=== PATIENT | female | born 1930 | race Caucasian/White ===

== ENCOUNTER 2017-10-12 11:31 | Emergency (ER) | payer MEDICARE, BC ==
[~2017-10-12] VITALS: Ht 165.1 cm; Wt 68.4 kg
[2017-10-12 13:57] LABS: BASOPHILS % (AUTO) 0.2 % (0-1); EOSINOPHILS % (AUTO) 0 % (0-6); HEMATOCRIT 42.1 % (35.0-45.0); HEMOGLOBIN 14.4 g/dl (12.0-16.0); LYMPHOCYTES % (AUTO) 8.7 % (21-51); MEAN CORPUSCULAR HEMOGLOBIN 31.1 PG (27.0-31.0); MEAN CORPUSCULAR HGB CONC 34.2 % (33.0-36.5); MEAN PLATELET VOLUME 9.1 FL (7.4-10.4); MONOCYTES # (AUTO) 0.8 X10'3 (0-0.9); MONOCYTES % (AUTO) 6.8 % (2-12); NEUTROPHILS # (AUTO) 9.8 X10'3 (1.8-7.7); NEUTROPHILS % (AUTO) 84.3 % (42-75); PLATELET COUNT 310 X10'3 (140-440); RED BLOOD COUNT 4.63 X10'6 (4.20-5.60); RED CELL DISTRIBUTION WIDTH 14.5 % (11.5-14.5); WHITE BLOOD COUNT 11.7 X10'3 (4.5-11.0)
[2017-10-12] MEDS ORDERED: cephalexin 500mg capsule PO ONE (14:05)
[2017-10-12 14:12] LABS: CLARITY,URINE SLIGHTLY CLOUDY (Clear); COLOR,URINE YELLOW (Yellow); GLUCOSE, URINE NEGATIVE (Neg); KETONES,URINE NEGATIVE (Neg); LEUKOCYTE ESTERASE ,URINE NEGATIVE (Neg); NITRITES, URINE NEGATIVE (Neg); OCCULT BLOOD,URINE NEGATIVE (Neg); PROTEIN,URINE TRACE mg/dl (Neg); UROBILINOGEN,URINE 0.2 E.U/dL (0.2-1.0)
[2017-10-12 14:13] LABS: UA COLLECTION TYPE CLN CATCH MIDSTREAM
[2017-10-12 14:15] LABS: ALBUMIN 3.5 G/DL (3.4-5.0); ALBUMIN/GLOBULIN RATIO 0.8 (1.1-1.5); ALKALINE PHOSPHATASE 129 IU/L (46-116); ANION GAP 13 (8-16); ASPARTATE AMINO TRANSFERASE 22 U/L (10-37); BILIRUBIN,TOTAL 0.1 MG/DL (0.1-1.0); BLOOD UREA NITROGEN 16 MG/DL (7-18); BUN/CREATININE RATIO 14.3 (6.6-38.0); CHLORIDE 103 MMOL/L (99-107); CREATININE 1.12 MG/DL (0.40-0.90); POTASSIUM 4.7 MMOL/L (3.5-5.1); SODIUM 139 MMOL/L (135-145); TOTAL CARBON DIOXIDE 22.8 MMOL/L (24-32); TOTAL PROTEIN 7.7 G/DL (6.4-8.2); eGFR 46 ML/MIN
[2017-10-12 14:17] LABS: GLUCOSE 136 MG/DL (70-104)
[2017-10-12 14:30] LABS: SQUAMOUS EPITHELIAL CELL,UR FEW /LPF (FEW)
[2017-10-12 14:31] LABS: MUCUS STRANDS FEW /LPF (Neg); RBC,URINE 0-2 /HPF (0-2); WBC,URINE 0-4 /HPF (0-4)
[2017-10-12 14:32] LABS: BACTERIA,URINE FEW /HPF (Neg); URIC ACID CRYSTALS 4+ /HPF (NEGATIVE)
[2017-10-12 14:47] LABS: PLATELET ESTIMATE NORMAL; TOTAL CELLS COUNTED 100
[2017-10-12] MEDS ORDERED: CEPH500C5 PO (14:52)
[2017-10-12 14:56] LABS: ALANINE AMINOTRANSFERASE 27 U/L (12-78)
== END 2017-10-12 15:13 | disposition home or self-care (01) ==
LOC: ER 11:31
DX: R30.0 Dysuria (principal); R53.1 Weakness; R06.02 Shortness of breath; R19.00 Intra-abdominal and pelvic swelling, mass and lump, unspecified site; Z79.899 Other long term (current) drug therapy
CPT/HCPCS: 36415; 74176; 80053; 81001; 85025; 87088; 99285

== ENCOUNTER 2017-11-05 04:53 | Emergency (ER) | payer MEDICARE, BC ==
[~2017-11-05] VITALS: Ht 165.1 cm; Wt 62.0 kg
[~2017-11-05 04:53] MED LIST: CEPH500C5 PO
[2017-11-05 04:56] VITALS: BP 152/92
[2017-11-05] MEDS ORDERED: CEPH500C5 PO (05:09)
[2017-11-05 05:33] LABS: CLARITY,URINE CLEAR (Clear); COLOR,URINE STRAW (Yellow); PH,URINE 7.5 (4.8-8.0); UA COLLECTION TYPE CLN CATCH MIDSTREAM
[2017-11-05 05:34] LABS: GLUCOSE, URINE NEGATIVE (Neg); KETONES,URINE NEGATIVE (Neg); LEUKOCYTE ESTERASE ,URINE TRACE (Neg); NITRITES, URINE NEGATIVE (Neg); OCCULT BLOOD,URINE NEGATIVE (Neg); PROTEIN,URINE NEGATIVE (Neg); UROBILINOGEN,URINE 0.2 E.U/dL (0.2-1.0)
[2017-11-05 05:35] LABS: BACTERIA,URINE FEW /HPF (Neg); RBC,URINE NONE SEEN /HPF (0-2)
[2017-11-05 05:36] LABS: SQUAMOUS EPITHELIAL CELL,UR FEW /LPF (FEW); TRANSITIONAL EPI CELLS,URINE FEW /HPF
== END 2017-11-05 05:21 | disposition home or self-care (01) ==
LOC: ER 04:54
DX: R30.0 Dysuria (principal); N39.0 Urinary tract infection, site not specified; Z79.2 Long term (current) use of antibiotics; Z88.2 Allergy status to sulfonamides
CPT/HCPCS: 81001; 87088; 99284

== ENCOUNTER 2017-12-07 06:31 | Emergency (ER) | payer MEDICARE, BC ==
[~2017-12-07] VITALS: Ht 165.1 cm; Wt 67.0 kg
[2017-12-07 06:33] VITALS: BP 174/98
[2017-12-07] MEDS ORDERED: cephalexin 250mg capsule PO ONE (06:50)
[2017-12-07 06:53] LABS: CLARITY,URINE CLEAR (Clear); COLOR,URINE YELLOW (Yellow); GLUCOSE, URINE NEGATIVE (Neg); KETONES,URINE NEGATIVE (Neg); LEUKOCYTE ESTERASE ,URINE TRACE (Neg); NITRITES, URINE NEGATIVE (Neg); OCCULT BLOOD,URINE TRACE-INTACT (Neg); PROTEIN,URINE NEGATIVE (Neg); UROBILINOGEN,URINE 0.2 E.U/dL (0.2-1.0)
[2017-12-07] MEDS ORDERED: CEPH500C5 PO ×2 (06:53→07:32)
[2017-12-07 07:00] LABS: UA COLLECTION TYPE CLN CATCH MIDSTREAM
[2017-12-07 07:01] LABS: BACTERIA,URINE 4+ /HPF (Neg); MUCUS STRANDS FEW /LPF (Neg); RBC,URINE 0-2 /HPF (0-2); SQUAMOUS EPITHELIAL CELL,UR FEW /LPF (FEW); WBC,URINE 0-4 /HPF (0-4)
== END 2017-12-07 07:38 | disposition home or self-care (01) ==
LOC: ER 06:32
DX: N39.0 Urinary tract infection, site not specified (principal); Z88.2 Allergy status to sulfonamides; Z88.8 Allergy status to other drugs, medicaments and biological substances; Z79.899 Other long term (current) drug therapy
CPT/HCPCS: 81001; 87088; 99284

== ENCOUNTER 2019-02-10 12:03 | Inpatient (IN) | payer MEDICARE, BC ==
[~2019-02-10] VITALS: Ht 162.6 cm; Wt 60.0 kg
[2019-02-10 13:24] LABS: BASOPHILS # (AUTO) 0.1 X10'3 (0-0.2); BASOPHILS % (AUTO) 0.4 % (0-1); EOSINOPHILS % (AUTO) 0.3 % (0-6); HEMATOCRIT 40.6 % (35.0-45.0); HEMOGLOBIN 13.9 g/dl (12.0-16.0); LYMPHOCYTES # (AUTO) 1.7 X10'3 (1.1-4.8); LYMPHOCYTES % (AUTO) 12.8 % (21-51); MEAN CORPUSCULAR HEMOGLOBIN 31.3 PG (27.0-31.0); MEAN CORPUSCULAR HGB CONC 34.2 g/dL (33.0-36.5); MEAN CORPUSCULAR VOLUME 91.4 FL (78-98); MEAN PLATELET VOLUME 9.1 FL (7.4-10.4); MONOCYTES # (AUTO) 1.3 X10'3 (0-0.9); MONOCYTES % (AUTO) 9.4 % (2-12); NEUTROPHILS # (AUTO) 10.5 X10'3 (1.8-7.7); NEUTROPHILS % (AUTO) 77.1 % (42-75); PLATELET COUNT 237 X10'3 (140-440); RED BLOOD COUNT 4.44 X10'6 (4.20-5.60); RED CELL DISTRIBUTION WIDTH 13.3 % (11.5-14.5); WHITE BLOOD COUNT 13.7 X10'3 (4.5-11.0)
[2019-02-10 13:36] LABS: ALANINE AMINOTRANSFERASE 34 U/L (12-78); ALBUMIN 3.5 G/DL (3.4-5.0); ALBUMIN/GLOBULIN RATIO 0.9 (1.1-1.5); ALKALINE PHOSPHATASE 99 IU/L (46-116); ANION GAP 9 (8-16); ASPARTATE AMINO TRANSFERASE 63 U/L (10-37); BILIRUBIN,TOTAL 0.7 MG/DL (0.1-1.0); BLOOD UREA NITROGEN 35 MG/DL (7-18); BUN/CREATININE RATIO 40.7 (6.6-38.0); CALCIUM 9.6 MG/DL (8.5-10.1); CHLORIDE 104 MMOL/L (99-107); CREATININE 0.86 MG/DL (0.40-0.90); POTASSIUM 4.2 MMOL/L (3.5-5.1); SODIUM 140 MMOL/L (135-145); TOTAL CARBON DIOXIDE 26.6 MMOL/L (24-32); TOTAL PROTEIN 7.4 G/DL (6.4-8.2); eGFR 62 ML/MIN
[2019-02-10 13:43] LABS: MAGNESIUM 2.3 MG/DL (1.5-2.4)
[2019-02-10 13:45] LABS: GLUCOSE 115 MG/DL (70-104)
[2019-02-10 15:03] LABS: CLARITY,URINE SLIGHTLY CLOUDY (Clear); COLOR,URINE YELLOW (Yellow); GLUCOSE, URINE NEGATIVE (Neg); KETONES,URINE 15 mg/dl (Neg); LEUKOCYTE ESTERASE ,URINE SMALL (Neg); NITRITES, URINE NEGATIVE (Neg); OCCULT BLOOD,URINE NEGATIVE (Neg); PH,URINE 5.5 (4.8-8.0); PROTEIN,URINE NEGATIVE (Neg); UROBILINOGEN,URINE 0.2 E.U/dL (0.2-1.0)
[2019-02-10 15:04] LABS: UA COLLECTION TYPE CLN CATCH MIDSTREAM
[2019-02-10 15:09] LABS: MUCUS STRANDS MODERATE /LPF (Neg); SQUAMOUS EPITHELIAL CELL,UR MODERATE /LPF (FEW)
[2019-02-10 15:10] LABS: BACTERIA,URINE 2+ /HPF (Neg); RBC,URINE 0-2 /HPF (0-2)
[2019-02-10] MEDS ORDERED: CefTRIAXone/D5W-Rocephin 1gm 50 ML IV ONE (15:30)
[2019-02-10] MEDS ORDERED: normal saline 1000ML IV soln IV ONE (16:00)
[2019-02-10] MEDS ORDERED: acetaminophen 325mg tablet PO PRN (16:00)
[2019-02-10] MEDS ORDERED: mag hydrox/Alum hydrox/simeth 30ml oral suspension PO PRN (16:00)
[2019-02-10] MEDS ORDERED: magnesium hydroxide 30ml (MOM) UD suspension PO PRN (16:00)
[2019-02-10] MEDS ORDERED: ondansetron/PF 4mg/2ml inj IV PRN (16:00)
[2019-02-10] MEDS ORDERED: LEVE500T PO (16:04)
[2019-02-10] MEDS ORDERED: METO25TA6 PO (16:04)
[2019-02-10] MEDS: normal saline 1000ml 1,000 ML IV SCH (16:27)
--- NOTE | 2019-02-10 19:00 | NUR ---
Received patient report from ER nurse Eli TONG. Will assume patient care.
--- NOTE | 2019-02-10 19:02 | NUR ---
PT REQUESTED FOOD AND I ORDERED A MEAL TRAY AND LET THE PATIENT KNOW AND OFFERED ANY SNACKS IN THE MEANTIME. PT REFUSED. 10 MINUTES LATER PT SEEMED SLIGHTLY AGGITATED AND WHEN ASKED WHAT WAS WRONG THE PATIENT AGAIN SAID SHE "HASN'T GOTTEN FOOD ALL DAY AND IT HAS BEEN A TERRIBLE HOSPITAL VISIT". REORIENTED PATIENT TO MEAL SITUATION AND AGAIN OFFERED SNACKS IN THE MEANTIME, PT REFUSED AGAIN.
--- NOTE | 2019-02-10 19:16 | NUR ---
[place], [id number],
--- NOTE | 2019-02-10 19:30 | NUR ---
Patient arrived via gurney. Patient confused, is aware that she is confused. [place] patient to room and environment. Patient states understanding to use the call light for camp assistant. Call light in reach.
[2019-02-10] MEDS: heparin, porcine 5000 units/ml vial SQ SCH (20:03)
[2019-02-10 22:00] VITALS: BP 136/88
[2019-02-11] VITALS: BP 124/85
[2019-02-11] MEDS: normal saline 1000ml 1,000 ML IV SCH (02:10)
[2019-02-11 05:10] LABS: BASOPHILS # (AUTO) 0.1 X10'3 (0-0.2); BASOPHILS % (AUTO) 0.8 % (0-1); EOSINOPHILS # (AUTO) 0.2 X10'3 (0-0.9); EOSINOPHILS % (AUTO) 2.3 % (0-6); HEMATOCRIT 36.2 % (35.0-45.0); HEMOGLOBIN 12.5 g/dl (12.0-16.0); LYMPHOCYTES # (AUTO) 2.5 X10'3 (1.1-4.8); LYMPHOCYTES % (AUTO) 24.7 % (21-51); MEAN CORPUSCULAR HEMOGLOBIN 32.1 PG (27.0-31.0); MEAN CORPUSCULAR HGB CONC 34.7 g/dL (33.0-36.5); MEAN CORPUSCULAR VOLUME 92.7 FL (78-98); MEAN PLATELET VOLUME 9.8 FL (7.4-10.4); NEUTROPHILS # (AUTO) 6.3 X10'3 (1.8-7.7); NEUTROPHILS % (AUTO) 62.2 % (42-75); PLATELET COUNT 194 X10'3 (140-440); RED CELL DISTRIBUTION WIDTH 13.3 % (11.5-14.5); WHITE BLOOD COUNT 10.2 X10'3 (4.5-11.0)
[2019-02-11 05:17] LABS: ALBUMIN 2.7 G/DL (3.4-5.0); ANION GAP 10 (8-16); BLOOD UREA NITROGEN 28 MG/DL (7-18); BUN/CREATININE RATIO 39.4 (6.6-38.0); CALCIUM 8.6 MG/DL (8.5-10.1); CHLORIDE 109 MMOL/L (99-107); CREATININE 0.71 MG/DL (0.40-0.90); POTASSIUM 3.5 MMOL/L (3.5-5.1); SODIUM 144 MMOL/L (135-145); TOTAL CARBON DIOXIDE 25.5 MMOL/L (24-32); eGFR 78 ML/MIN
[2019-02-11 05:18] LABS: GLUCOSE 93 MG/DL (70-104)
--- NOTE | 2019-02-11 06:46 | NUR ---
Patient in room [facility]. I have received report from RAN Weldon and had the opportunity to ask questions and assume patient care.
--- NOTE | 2019-02-11 06:55 | NUR ---
Patient in room [facility]. I have received report from RAN Weldon and had the opportunity to ask questions and assume patient care.
[2019-02-11 07:00] VITALS: BP 126/70
[2019-02-11] MEDS: levetiracetam 250mg tablet PO SCH (07:34)
[2019-02-11] MEDS: heparin, porcine 5000 units/ml vial SQ SCH ×2 (07:34→19:30)
[2019-02-11] MEDS: CefTRIAXone/D5W-Rocephin 1gm 50 ML IV SCH (07:34)
[2019-02-11 11:00] VITALS: BP_SYST 104; BP_SYST 150; BP_DIAS 63; BP_DIAS 65
--- NOTE | 2019-02-11 12:00 | NUR ---
Pt transported to CT via wheelchair.
--- NOTE | 2019-02-11 17:40 | NUR ---
Student documentation: I have reviewed and agree with all interventions, assessments performed and documented by Dian, student RN.
[2019-02-11 18:30] VITALS: BP 123/62
--- NOTE | 2019-02-11 18:32 | NUR ---
Problems reprioritized. Patient report given, questions answered & plan of care reviewed with RAN Campos.
--- NOTE | 2019-02-11 18:39 | NUR ---
Received report from Shruti TONG pt is awake on RA, eating dinner, in no apparent distress,
[2019-02-11] MEDS: lactobacillus rhamnosus 10,000 MMU CELLS/CAPSULE PO SCH (19:29)
[2019-02-12 00:25] VITALS: BP 101/54
--- NOTE | 2019-02-12 05:00 | NUR ---
Spoke with Dr. Akers regarding pt having 745 in her bladder per bladder scanner, he stated to give her a Zavala catheter
[2019-02-12 05:01] LABS: BASOPHILS # (AUTO) 0.1 X10'3 (0-0.2); BASOPHILS % (AUTO) 1.1 % (0-1); EOSINOPHILS # (AUTO) 0.3 X10'3 (0-0.9); EOSINOPHILS % (AUTO) 3.3 % (0-6); HEMATOCRIT 34.9 % (35.0-45.0); HEMOGLOBIN 12.1 g/dl (12.0-16.0); LYMPHOCYTES # (AUTO) 2.4 X10'3 (1.1-4.8); LYMPHOCYTES % (AUTO) 29.8 % (21-51); MEAN CORPUSCULAR HEMOGLOBIN 31.9 PG (27.0-31.0); MEAN CORPUSCULAR HGB CONC 34.6 g/dL (33.0-36.5); MEAN CORPUSCULAR VOLUME 92.3 FL (78-98); MEAN PLATELET VOLUME 9.6 FL (7.4-10.4); MONOCYTES # (AUTO) 0.9 X10'3 (0-0.9); MONOCYTES % (AUTO) 10.9 % (2-12); NEUTROPHILS # (AUTO) 4.5 X10'3 (1.8-7.7); NEUTROPHILS % (AUTO) 54.9 % (42-75); PLATELET COUNT 190 X10'3 (140-440); RED BLOOD COUNT 3.78 X10'6 (4.20-5.60); RED CELL DISTRIBUTION WIDTH 13.3 % (11.5-14.5); WHITE BLOOD COUNT 8.1 X10'3 (4.5-11.0)
[2019-02-12 05:13] LABS: ALBUMIN 2.6 G/DL (3.4-5.0); ANION GAP 7 (8-16); BLOOD UREA NITROGEN 18 MG/DL (7-18); BUN/CREATININE RATIO 26.9 (6.6-38.0); CALCIUM 8.4 MG/DL (8.5-10.1); CHLORIDE 111 MMOL/L (99-107); CREATININE 0.67 MG/DL (0.40-0.90); POTASSIUM 3.7 MMOL/L (3.5-5.1); SODIUM 144 MMOL/L (135-145); TOTAL CARBON DIOXIDE 25.6 MMOL/L (24-32); eGFR 83 ML/MIN
[2019-02-12 05:48] LABS: GLUCOSE 103 MG/DL (70-104)
--- NOTE | 2019-02-12 06:11 | NUR ---
Patient in room [facility]. I have received report from RAN Campos and had the opportunity to ask questions and assume patient care.
--- NOTE | 2019-02-12 06:13 | NUR ---
Gave report to Shruti TONG pt is awake on RA, bed alarm on
--- NOTE | 2019-02-12 06:44 | NUR ---
Patient in room [facility]. I have received report from RAN Londono and had the opportunity to ask questions and assume patient care.
[2019-02-12 07:00] VITALS: BP 115/53
[2019-02-12] MEDS: CefTRIAXone/D5W-Rocephin 1gm 50 ML IV SCH (07:31)
[2019-02-12] MEDS: levetiracetam 250mg tablet PO SCH (07:31)
[2019-02-12] MEDS: lactobacillus rhamnosus 10,000 MMU CELLS/CAPSULE PO SCH ×2 (07:31→19:43)
[2019-02-12] MEDS: heparin, porcine 5000 units/ml vial SQ SCH ×2 (07:32→19:43)
[2019-02-12 11:00] VITALS: BP 119/71
--- NOTE | 2019-02-12 16:22 | NUR ---
FC D/C'd at 1610. Pt tolerated well, call younger within reach, instructed pt to call to get up to bedside commode. Will continue to monitor.
--- NOTE | 2019-02-12 18:41 | NUR ---
Received report from Shruti TONG pt is eating dinner, getting vital signs taken, in no apparent distress, call light and items of freq use within reach.
--- NOTE | 2019-02-12 18:45 | NUR ---
Problems reprioritized. Patient report given, questions answered & plan of care reviewed with RAN Londono.
[2019-02-12 19:00] VITALS: BP 127/26
--- NOTE | 2019-02-12 22:08 | NUR ---
attempted to get pt up to [facility], pt had minimal output, bladder scanned pt only had 172 in bladder at this time
[2019-02-13 00:30] VITALS: BP 126/67
--- NOTE | 2019-02-13 00:39 | NUR ---
bladder scanned pt, pt had 299
--- NOTE | 2019-02-13 03:00 | NUR ---
bladder scanned pt. pt had 384 in bladder, straight cathed patient had 250mL of odorous cloudy yellow urine
--- NOTE | 2019-02-13 06:07 | NUR ---
Gave report to Shruti TONG pt is resting on RA, in no apparent distress, call light and items of freq use within reach, bed alarm on.
[2019-02-13 06:15] LABS: BASOPHILS # (AUTO) 0.1 X10'3 (0-0.2); BASOPHILS % (AUTO) 1.3 % (0-1); EOSINOPHILS # (AUTO) 0.2 X10'3 (0-0.9); EOSINOPHILS % (AUTO) 2.6 % (0-6); HEMATOCRIT 35.6 % (35.0-45.0); HEMOGLOBIN 12.3 g/dl (12.0-16.0); LYMPHOCYTES # (AUTO) 2.2 X10'3 (1.1-4.8); MEAN CORPUSCULAR HEMOGLOBIN 32.3 PG (27.0-31.0); MEAN CORPUSCULAR HGB CONC 34.6 g/dL (33.0-36.5); MEAN CORPUSCULAR VOLUME 93.5 FL (78-98); MEAN PLATELET VOLUME 9.9 FL (7.4-10.4); MONOCYTES # (AUTO) 0.8 X10'3 (0-0.9); MONOCYTES % (AUTO) 9.6 % (2-12); NEUTROPHILS # (AUTO) 4.8 X10'3 (1.8-7.7); NEUTROPHILS % (AUTO) 59.5 % (42-75); PLATELET COUNT 196 X10'3 (140-440); RED BLOOD COUNT 3.81 X10'6 (4.20-5.60); RED CELL DISTRIBUTION WIDTH 13.7 % (11.5-14.5); WHITE BLOOD COUNT 8.2 X10'3 (4.5-11.0)
[2019-02-13 06:24] LABS: ALBUMIN 2.7 G/DL (3.4-5.0); ANION GAP 9 (8-16); BLOOD UREA NITROGEN 16 MG/DL (7-18); BUN/CREATININE RATIO 24.2 (6.6-38.0); CALCIUM 8.1 MG/DL (8.5-10.1); CHLORIDE 110 MMOL/L (99-107); CREATININE 0.66 MG/DL (0.40-0.90); POTASSIUM 3.6 MMOL/L (3.5-5.1); SODIUM 144 MMOL/L (135-145); TOTAL CARBON DIOXIDE 24.7 MMOL/L (24-32); eGFR 84 ML/MIN
[2019-02-13 06:25] LABS: GLUCOSE 101 MG/DL (70-104)
--- NOTE | 2019-02-13 06:30 | NUR ---
Patient in room [facility]. I have received report from RAN Campos and had the opportunity to ask questions and assume patient care.
[2019-02-13 07:00] VITALS: BP 128/67
[2019-02-13] MEDS: CefTRIAXone/D5W-Rocephin 1gm 50 ML IV SCH (07:57)
[2019-02-13] MEDS: levetiracetam 250mg tablet PO SCH (07:58)
[2019-02-13] MEDS: heparin, porcine 5000 units/ml vial SQ SCH (07:58)
[2019-02-13] MEDS: lactobacillus rhamnosus 10,000 MMU CELLS/CAPSULE PO SCH (07:58)
[2019-02-13 10:47] VITALS: BP 135/66
--- NOTE | 2019-02-13 13:41 | NUR ---
Report called to Janelle Arrington RN Summer took report. All belongings sent home with daughter, Lucero.
--- NOTE | 2019-02-13 14:30 | NUR ---
Pt discharged to [facility] at 1425, transported by medical personnel. All belongings sent home with pt's daughter, Lucero. IV left in place per request from nurse taking over care.
== END 2019-02-13 14:29 | DRG 689 ==
LOC: ER 12:04 → ED HOLD 15:59 → SUR 3N 19:26
PROVIDERS: ADMIT Family Medicine; ATTEND Family Medicine
DX: N39.0 Urinary tract infection, site not specified (principal); G93.41 Metabolic encephalopathy; E44.0 Moderate protein-calorie malnutrition; F02.80 Dementia in other diseases classified elsewhere, unspecified severity, without behavioral disturbance, psychotic disturbance, mood disturbance, and anxiety; G30.9 Alzheimer's disease, unspecified; I10 Essential (primary) hypertension; R79.89 Other specified abnormal findings of blood chemistry; Z88.2 Allergy status to sulfonamides; Z68.22 Body mass index [BMI] 22.0-22.9, adult; Z51.5 Encounter for palliative care
CPT/HCPCS: 36415; 70450; 71045; 80048; 80053; 81001; 83605; 83735; 83880; 84484; 85025; 87040; 87081; 87088; 93005; 96374; 97110; 97116; 97162; 97530; 99285; G0378; J0696; J1644; J7030